=== PATIENT | female | born 1985 | race Caucasian/White ===

== ENCOUNTER 2020-02-15 13:42 | Outpatient (CLI) | payer OTHER, SELFPAY ==
--- NOTE | 2020-02-15 13:46 | XRR_ITS ---
PROCEDURE INFORMATION: Exam: XR Chest, 2 Views Exam date and time: 02/15/2020 1:55 PM Age: 34 years old Clinical indication: Cough and shortness of breath; Patient HX: Cough, SOB, difficulty breathing x 1 month; Additional info: To rule out pneumonia TECHNIQUE: Imaging protocol: XR of the chest Views: 2 views. COMPARISON: CR Chest 1 [place] [id number] 10/31/2018 11:06 AM FINDINGS: Lungs: Unremarkable. No consolidation. Pleural space: Unremarkable. No pleural effusion. No pneumothorax. Heart/Mediastinum: Unremarkable. No cardiomegaly. Bones/joints: Unremarkable. XR/XR chest 2V* [id number] IMPRESSION: No acute findings.
[2020-02-15 14:57] LABS: Basophils # 0.1 10^3/uL (0.0-0.1); Basophils % 0.7 %; Eosinophils # 1.1 10^3/uL (0.0-0.8); Eosinophils % 12.6 %; Hematocrit 41.5 % (37.0-47.0); Lymphocytes # 2.2 10^3/uL (0.8-4.8); Lymphocytes % 25.7 %; Mean Corpuscular HGB Conc 31.3 g/dL (30.0-36.0); Mean Corpuscular Volume 86.3 fL (81-99); Mean Platelet Volume 9.9 fL (7.4-10.4); Monocytes # 0.5 10^3/uL (0.2-0.9); Monocytes % 6.2 %; Neutrophils # 4.75 10^3/uL (1.8-7.7); Neutrophils % 54.6 %; Nucleated Red Blood Cells % 0 %; Platelet Count 461 10^3/cmm (130-400); Red Blood Count 4.81 10^6/uL (4.1-5.3); Red Cell Distribution Width 15.1 % (12.1-15.1); White Blood Count 8.7 10^3/uL (4.0-10.0)
[2020-02-15 15:11] LABS: Immunoglobulin IGA 235 mg/dL (70-400); Immunoglobulin IGG 956 mg/dL (700-1600); Immunoglobulin IGM 95 mg/dL (40-230)
[2020-02-16 15:02] LABS: Alternaria Alternata (M6) Ige <0.10 kU/L; Alternaria Class 0; Bermuda Class 0; Bermuda Grass (G2) Ige <0.10 kU/L; Cat Dander (E1) Ige <0.10 kU/L; Cat Dander Class 0; Common Ragweed (Short) (W1) Ig <0.10 kU/L; D. Farinae Class 0; Dermatophagoides Class 0; Dermatophagoides Farinae (D2) <0.10 kU/L; Dermatophagoides Pteronyssinus <0.10 kU/L; Dog Dander (E5) Ige <0.10 kU/L; Dog Dander Class 0; Elm (T8) Ige <0.10 kU/L; Elm Class 0; English Plantain (W9) Ige <0.10 kU/L; English Plantain Class 0; House Dust (Greer) (H1) Ige <0.10 kU/L; House Dust (Hollister- Stier) <0.10 kU/L; House Dust Class 0; Immunoglobulin E 101 kU/L (<OR=114); Immunoglobulin E 92 kU/L (<OR=114); Johnson Grass (G10) Ige <0.10 kU/L; Johnson Grass Cl 0; June Grass Class 0; June Grass(Kentucky Blue) (G8) <0.10 kU/L; Lamb'S Quarters (Goose Foot) <0.10 kU/L; Lamb'S Quarters Class 0; Maple (Box Elder) (T1) Ige <0.10 kU/L; Maple Class 0; Meadow Fescue (G4) Ige <0.10 kU/L; Meadow Fescue Class 0; Mucor Racemosus Class 0; Oak (T7) Ige <0.10 kU/L; Oak Class 0; Orchard Grass (Cocksfoot) (G3) <0.10 kU/L; Penicillium Class 0; Penicillium Notatum (M1) Ige <0.10 kU/L; Perennial Rye Grass (G5) Ige <0.10 kU/L; Perennial Rye Grass Class 0; Ragweeed Class 0; Rough Marsh Elder (W16) Ige <0.10 kU/L; Rough Marsh Elder Class 0; Sweet Vernal Class 0; Sweet Vernal Grass (G1) Ige <0.10 kU/L; Timothy Grass (G6) Ige <0.10 kU/L; Timothy Grass Class 0
[2020-02-21 20:18] LABS: Aspergillus Fumigatus, Igg Ab, 18.6 mg/L (<=102)
== END 2020-02-15 13:43 | disposition home or self-care (01) ==
LOC: LAB 13:44
PROVIDERS: PCP Family Medicine; Visit Provider Internal Medicine Pulmonary Disease
DX: J45.909 Unspecified asthma, uncomplicated (principal); R06.02 Shortness of breath; J20.9 Acute bronchitis, unspecified; J44.0 Chronic obstructive pulmonary disease with (acute) lower respiratory infection
CPT/HCPCS: 36415; 71046; 82784; 82785; 85025; 86003

== ENCOUNTER → 2020-03-02 13:41 | Outpatient (BNVA) | payer OTHER, SELFPAY | PROVIDERS: PCP Family Medicine; Visit Provider Internal Medicine Pulmonary Disease | DX: R06.02 Shortness of breath (principal) | CPT/HCPCS: 87635 ==

== ENCOUNTER 2020-03-07 11:29 | Outpatient (CLI) | payer OTHER, SELFPAY ==
--- NOTE | 2020-03-07 12:53 | PFTS_ITS ---
Date of Study:03/07/20 Date of Dictation: MECHANICS: Forced vital capacity (FVC) is normal. Forced expiratory volume in one second (FEV1) is normal. FEV1/FVC is normal. FLOW VOLUME LOOP: Normal. LUNG VOLUMES: Total lung capacity (TLC) is normal. Residual volume (RV) is increased. DIFFUSING CAPACITY FOR CARBON MONOXIDE: Normal. INTERPRETATION: The prebronchodilator spirometry is consistent with moderate obstruction. The postbronchodilator spirometry is essentially normal. There is a significant postbronchodilator response of 50%. The pulmonary function test is very consistent with the diagnosis of asthma. Lung volumes are consistent with air trapping. Gas exchange (DLCO) is normal. MTDD
== END 2020-03-07 11:30 | disposition home or self-care (01) ==
PROVIDERS: PCP Family Medicine; Visit Provider Internal Medicine Pulmonary Disease
DX: R06.02 Shortness of breath (principal); J45.909 Unspecified asthma, uncomplicated
CPT/HCPCS: 94060; 94726; 94729; J7611

== ENCOUNTER 2020-03-21 14:26 | Outpatient (CLI) | payer OTHER, SELFPAY ==
--- NOTE | 2020-03-21 14:35 | XR_ITS ---
WS: [id number] PROCEDURE: XR chest 2V* [id number] CLINICAL INFORMATION: rule out pneumonia COMPARISON: February 15, 2020 FINDINGS: Heart: Normal cardiac silhouette. Lungs: Lungs are clear. No consolidation or pleural fluid. No acute pulmonary infiltrates. Bones: Normal visualized bony structures. XR/XR chest 2V* [id number] IMPRESSION: Normal chest
== END 2020-03-21 14:27 | disposition home or self-care (01) ==
LOC: RAD 14:30
PROVIDERS: PCP Family Medicine; Visit Provider Internal Medicine Pulmonary Disease
DX: J18.9 Pneumonia, unspecified organism (principal)
CPT/HCPCS: 71046

== ENCOUNTER → 2020-04-23 09:42 | Outpatient (BNVA) | payer OTHER, SELFPAY | PROVIDERS: PCP Family Medicine; Visit Provider Nurse Practitioner Family | DX: R19.8 Other specified symptoms and signs involving the digestive system and abdomen (principal); Z20.822 Contact with and (suspected) exposure to COVID-19 | CPT/HCPCS: 87400; 87635 ==

== ENCOUNTER → 2021-11-14 14:46 | Outpatient (BNVA) | payer OTHER, SELFPAY | PROVIDERS: PCP Family Medicine; Visit Provider Family Medicine | DX: M79.89 Other specified soft tissue disorders (principal); I16.1 Hypertensive emergency; J82.83 Eosinophilic asthma; R40.0 Somnolence; Z76.89 Persons encountering health services in other specified circumstances | CPT/HCPCS: 73130; 80053; 83735; 83835; 84443; 85025 ==

== ENCOUNTER → 2022-02-04 12:25 | Outpatient (BNVA) | payer OTHER, SELFPAY | PROVIDERS: PCP Family Medicine; Visit Provider Emergency Medicine | DX: R68.89 Other general symptoms and signs (principal) | CPT/HCPCS: 87400 ==

== ENCOUNTER → 2022-04-29 07:46 | Outpatient (BNVA) | payer OTHER, SELFPAY | PROVIDERS: PCP Family Medicine; Visit Provider Nurse Practitioner Family | DX: R68.89 Other general symptoms and signs (principal); Z20.822 Contact with and (suspected) exposure to COVID-19 | CPT/HCPCS: 87426 ==

== ENCOUNTER → 2022-05-23 10:18 | Outpatient (BNVA) | payer OTHER, SELFPAY | PROVIDERS: PCP Family Medicine; Visit Provider Student in an Organized Health Care Education/Training Program | DX: M65.332 Trigger finger, left middle finger (principal) | CPT/HCPCS: 73130 ==

== ENCOUNTER 2022-06-17 08:28 | Day surgery (SDC) | payer OTHER, SELFPAY ==
[2022-06-16 10:13] VITALS: BMI 42.5
[2022-06-17] MEDS: acetaminophen 1,000 MG/100 ML PIGGYBACK 400 MG IV (09:13)
[2022-06-17] MEDS: sodium chloride 0.9% 1,000 ML 30 ML IV (09:15)
[2022-06-17] MEDS: ketorolac 30 mg/mL INJ IVP (09:15)
--- NOTE | 2022-06-17 11:10 | W.PM.OPSUD ---
Surgery/Procedure H&P Update DATE OF PROCEDURE: June 17, 2022 DATE H&P PERFORMED: 05/23/22 CHANGES TO PREVIOUS DOCUMENTATION: none PREOP DIAGNOSIS: LEFT MIDDLE FINGER TRIGGER PRIMARY INDICATION FOR PROCEDURE: Left middle finger trigger PLANNED PROCEDURE: Operation Date: 06/17/22 10:25 Proposed Procedures p Left long trigger finger release:22956, M65.332(Left) - Skinny Carrasco DO
--- NOTE | 2022-06-17 11:14 | ANES.PREANE2 ---
Pre-Anesthetic Assessment Height/Weight: Height 1.73 m Weight 127.006 kg O2 Del Method Room Air 06/17/22 08:56 Preop Diagnosis: LEFT MIDDLE FINGER TRIGGER Operation Date: 06/17/22 10:25 Proposed Procedures p Left long trigger finger release:36845, M65.332(Left) - Skinny Luna, Familial anesthetic complications: none Was Beta Devan taken within 24 hours: N/A Was Clonidine taken within 24 hours: N/A Last intake: Intake Last Liquid Date 06/17/22 Last Liquid Time 00:00 Last Solid Date 06/16/22 Last Solid Time 20:00 Social No alcohol and No tobacco Exam alert, oriented x 3, clear to auscultation bilaterally and regular rate & rhythm Airway Submandibular: within normal limits Cervical ROM: within normal limits Mallampati: Class II Dentition: full Pulmonary Asthma Metabolic Morbid Obesity Anesthetic Plan ASA status: 3 Anesthesia: Choice Medications/Allergies Home Medications Medication Instructions Recorded Confirmed Last Taken Type nebulizers #1 ea 12/04/19 05/23/22 Unknown History albuterol sulfate 90 mcg/actuation 1 inh inhalation QID #8.5 grams 11/07/21 06/17/22 06/15/22 Rx aerosol inhaler benralizumab 30 mg/mL subcutaneous 30 mg SUBCUT .Q8W #1 mL 11/07/21 06/17/22 04/23/22 Rx auto-injector (Fasenra Pen) budesonide-formoterol HFA 160 2 puff inhalation BID #10.2 grams 11/07/21 06/16/22 06/16/22 Rx mcg-4.5 mcg/actuation aerosol inhaler (Symbicort) ipratropium 0.5 mg-albuterol 3 mg 3 ml inhalation QID PRN wheezing 11/07/21 05/23/22 06/17/22 Rx (2.5 mg base)/3 mL nebulization #180 mL soln hydralazine 10 mg tablet 10 mg PO Q4H PRN hypertension #10 11/14/21 06/16/22 Unknown Rx tabs tiotropium bromide 2.5 2 puff inhalation DAILY #4 grams 01/15/22 06/16/22 06/16/22 Rx mcg/actuation mist for inhalation (Spiriva Respimat) hydroxyzine HCl 10 mg tablet 10 mg PO .at bedtime PRN insomnia 04/03/22 06/16/22 Unknown Rx 30 days #30 tabs promethazine 12.5 mg tablet 12.5 mg PO Q6H PRN nausea and 04/29/22 06/17/22 05/27/22 Rx vomiting #14 tabs levalbuterol HCl 0.63 mg/3 mL 0.63 mg (3 mL) inhalation TID #72 05/07/22 06/17/22 06/17/22 Rx solution for nebulization (Xopenex) mL Allergies Allergy/AdvReac Type Severity Reaction Status Date / Time metoclopramide [From Reglan] Allergy Severe anaphylaxis Verified 06/17/22 08:47 Current Medications Generic Name Dose Route Start Last Admin Trade Name Freq PRN Reason Stop Dose Admin Sodium Chloride 1,000 mls @ 30 mls/hr 06/17/22 08:45 06/17/22 09:15 Sodium Chloride 0.9% IV 06/18/22 08:44 30 mls/hr .Q24H ZANE Administration PFSH Anesthesia Family History Father Hypertension Grandmother Diabetes Mother Cancer lyphoma Thyroid disease thyroid cancer Denies family history of Clotting disorder Dementia Bleeding disorder Stroke Social History Smoking and tobacco status: never smoked Second hand smoke exposure: Yes Smoking risk assessment/counseling performed?: No Alcohol intake: never Substance/Drug Use: never Lives independently: Yes Household members: spouse Housing: House Marital status: Current occupational status: employed Pets and animals: Yes Do you think of yourself as: Straight/Heterosexual Current gender identity: Female Female Reproductive History Date of last menstrual period: 05/20/22 Spontaneous abortions: No Data Anesthesia Cardiac Studies: No Data to Display
[2022-06-17] MEDS: ceFAZolin 2,000 MG in sodium chloride 0.9% (plus) 50 ML 100 MG IV (12:13)
[2022-06-17 12:53] VITALS: BP 157/79; PULSE 88; RESP 16; TEMP 36.3; O2SAT 95
--- NOTE | 2022-06-17 12:56 | PM.OP2 ---
Brief Operative Note Date of procedure: 06/17/22 Pre-op diagnosis: Left middle finger trigger Post-op diagnosis: same Procedure Done: Left middle finger trigger release and tenosynovectomy Surgeon: Skinny Carrasco Estimated blood loss (mL): 3 Complications: None Post-op Plan: Patient taken to PACU in stable condition recovering well. Dressing on in place clean dry and intact will receive appropriate discharge instruction as well as pain medication postoperatively. We will follow-up with me in the office in 2 weeks. Condition: stable Disposition: same day Coding Level of Care Code Acute Code for Tate Smith
--- NOTE | 2022-06-17 12:57 | P.OP_ITS ---
Operative Report Date of procedure: June 17, 2022 Pre-op diagnosis: Preop Diagnosis LEFT MIDDLE FINGER TRIGGER Procedure: Post-op diagnosis: ?same with significant tenosynovitis Procedure done: Left middle finger trigger release and tenosynovectomy Surgeon: Skinny Carrasco DO Estimated blood loss: 1 mL Tourniquet time 10 minutes IV fluids: 100 mL Complications: None Condition: stable Disposition: same day Brief History: Patient been seen evaluate in the outpatient setting left middle finger trigger consistent with preoperative diagnosis.? we talked about treatment options far as nonoperative and operative intervention.? Patient is only received temporary relief from corticosteroid injection. At this point time through shared decision making patient would like to proceed with a left middle finger trigger release surgery. we talked about the risk benefits complication alternatives to each treatment option understanding his risk for surgery patient agrees to proceed with surgical intervention.? All questions answered.? Consent reviewed and signed with patient. Procedure: Patient presented to the preoperative holding area consent was reviewed and signed with patient.? Correct extremity/digit was then marked.? Patient was then seen evaluated by Anesthesia Department once cleared for surgery was taken back to the operative suite.? Transported on the OR table in supine position all bony prominences well-padded patient was appropriate secured to bed.? Armboard was applied to the left arm.? Patient then underwent anesthesia per the anesthesia part once appropriately anesthetized nonsterile tourniquet applied to the left upper arm.? Patient's left upper extremity was then prepped and draped in standard orthopedic fashion.? Final timeout performed.? Patient received appropriate preoperative antibiotics. Under sterile aseptic technique a local digital block was then performed for planned incision site of the left middle finger.? Esmarch tourniquet was used exsanguinate the left upper extremity.? Tourniquet was insufflated to 250 mmHg. A standard oblique incision was made in patient's distal palmar crease sharp scalpel incision was made strictly through just skin.? I then switched to Littler dissection scissors and dissected and spread longitudinally in the planes of the neurovascular bundle and longitudinally in line with the flexor tendon sheath.? Once soft tissue mobilized over the tendon I then placed Kasdan retractors to protect the neurovascular bundle and identified the proximal portion of the A1 jayne.? This was then incised with a sharp scalpel and then switched to dissection scissors to complete the A1 jayne release distally.? Upon entrance of the A1 jayne I inspected the tendons there was significant tenosynovitis and inflammation throughout and utilizing a rongeur as well as Littler dissection scissors performed tenosynovectomy of the FDS and FDP tendo ns. I then had patient awakened from anesthetic.? I utilized a rag nail to pull the tendon through the incision site and inspected each of the FDS and FDP tendons which no evidence of tear or rupture.? Patient was then had actively make a fist and no evidence of triggering was noted this completed the procedure tourniquet was deflated hemostasis satisfactory bipolar electrocautery.? I then thoroughly irrigated the incision site and then closed the incision with interrupted nylon suture.? Incision dressed with Xeroform 4 x 4's fluffs Curlex and an Blaine wrap.? Patient was then taken to PACU in stable condition. Disposition: Patient taken PACU in stable condition recovering well dressings on in place clean dry and intact.? Patient receive appropriate discharge structure as well as pain medication postoperatively.? Patient follow-up in the orthopedic office in 2 weeks.? Patient understands agrees with current plan.? All questions answered.
--- NOTE | 2022-06-17 12:57 | PM.PACU ---
PACU note Narrative: Patient taken to PACU in stable condition recovering well. Dressing on in place clean dry and intact fingertips warm well-perfused brisk capillary refill less than 2 seconds. Decreased sensation secondary to local anesthesia. Patient is able to wiggle fingers. Exam: awake Disposition: discharged
[2022-06-17 12:58] VITALS: BP 156/85; PULSE 81; RESP 18; O2SAT 93
[2022-06-17 13:03] VITALS: BP 178/83; PULSE 74; RESP 18; O2SAT 93
[2022-06-17 13:05] VITALS: BP 156/83; PULSE 70; RESP 18; TEMP 36.4; O2SAT 94
[2022-06-17 13:14] VITALS: BP 166/89; PULSE 71; RESP 18; TEMP 36.4; O2SAT 95
[2022-06-17] MEDS: HYDROcodone-acetaminophen 5-325 mg Tablet 1 TAB PO (13:33)
[2022-06-17 13:40] VITALS: BP 133/66; PULSE 75; RESP 18; TEMP 36.4; O2SAT 95
--- NOTE | 2022-06-17 14:37 | ANE.PACU2 ---
Inpatient post-anesthesia follow up: Airway intact: Yes Vital signs: Temperature 97.6 F Pulse Rate 75 Respiratory Rate 18 Blood Pressure 133/66 Pulse Oximetry 95 Oxygen Delivery Me thod Room Air Oxygen Flow Rate Fraction of Inspir ed Oxygen Hydration adequate: Yes Nausea and vomiting: No Pain level: 2 Mental status: Baseline
[2022-06-20 07:39] LABS: OR HCG Qualitative Urine Negative (Negative)
== END 2022-06-17 13:52 | disposition home or self-care (01) ==
PROVIDERS: PCP Family Medicine; Visit Provider Student in an Organized Health Care Education/Training Program
PROC: (CPT 26055; principal; 2022-06-17 10:15)
DX: M65.332 Trigger finger, left middle finger (principal); J45.909 Unspecified asthma, uncomplicated; E66.01 Morbid (severe) obesity due to excess calories; Z68.41 Body mass index [BMI] 40.0-44.9, adult; Z79.899 Other long term (current) drug therapy
CPT/HCPCS: 26055; 84703; J0131; J0690; J1885; J2250; J2704; J2795; J3010; J3490; J7030

== ENCOUNTER → 2022-08-14 07:51 | Outpatient (BNVA) | payer OTHER, SELFPAY | PROVIDERS: PCP Family Medicine; Visit Provider Student in an Organized Health Care Education/Training Program | DX: M25.50 Pain in unspecified joint (principal) | CPT/HCPCS: 36415; 80053; 85651; 86140; 86160; 86162; 86200; 86235; 86255; 86376; 86431 ==